=== PATIENT | male | born 1990 | race African-American/Black ===

== ENCOUNTER 2017-06-28 14:15 | Emergency (ER) | payer SELFPAY ==
[~2017-06-28] VITALS: Ht 175.3 cm; Wt 68.0 kg
[2017-06-28] MEDS ORDERED: KETOROLAC 60MG/2ML VIAL IM ONE (15:45)
[2017-06-28] MEDS ORDERED: METHOCARBAMOL 500MG TABLET PO ONE (15:45)
[2017-06-28 16:35] VITALS: BP 131/85
== END 2017-06-28 17:08 | disposition home or self-care (01) ==
LOC: ER 14:32
DX: S00.93XA Contusion of unspecified part of head, initial encounter (principal); M54.2 Cervicalgia; V49.88XA Car occupant (driver) (passenger) injured in other specified transport accidents, initial encounter; Y93.89 Activity, other specified; Y92.410 Unspecified street and highway as the place of occurrence of the external cause; Y99.8 Other external cause status
CPT/HCPCS: 96372; 99283; J1885